=== PATIENT | female | born 1960 | race Caucasian/White ===

== ENCOUNTER 2020-05-19 06:35 | Day surgery (SDC) | payer OTHER ==
[~2020-05-19] VITALS: Ht 160 cm; Wt 80.7 kg
[~2020-05-19 06:35] MED LIST: CLARITIN10 M2 PO; IBUPROFEN200 M1 PO; METOPROLOL SUCC25 MG PO; MULTIVITAMINS1 EAC7 PO; SYNTHROID125 MCG PO
[2020-05-19] MEDS ORDERED: HYDROCODON-ACE1 EA11 PO (08:27)
[2020-05-19] MEDS ORDERED: CELECOXIB200 MG PO (08:27)
--- NOTE | 2020-05-19 08:28 | NUR ---
05/19/20 0828 Lindsey Voss 2526 PT ARRIVED TO PACU WITH ORAL AIRWAY IN PLACE AND PT NONAROUSABLE. VSS ON 6L VIA MASK. RESP EVEN AND UNALABORED.
--- NOTE | 2020-05-19 08:31 | NUR ---
PT ALERT, ORIENTED AND SUPPORTED BY HER ZULAY AT . BOTH ARE PLEASANT, ALL QUESTIONS ASKED ANSWERED. PT REQUESTED PRAYER
--- NOTE | 2020-05-19 09:10 | NUR ---
PATIENT BACK TO FLOOR FROM RECOVERY, AWAKE ON AND OFF. PATIENT RESTING BACK ICE IN PLACE. DRESSING C/D/I. PATIENT RATES PAIN 8/10 ON PAIN SCALE, STATES" IT FEELS LIKE MY KNEE HAS SPACE IN IT AND IT HURTS". CRACKERS AND WATER PROVIDED FOLLOWED BY ADMINISTRATION OF PAIN MEDICATION PER MAR. AT BEDSIDE. CALLL LIGHT WITHIN REACH.
--- NOTE | 2020-05-19 10:00 | NUR ---
PATIENT RESTING BACK IN BED. RATES PAIN 6/10 ON PAIN SCALE. STATES " FEELS SHARP AND THROBBING". REPOSITIONED BED. WHEN TALKING TO PATIENT FALLS ASLEEP. AT BEDSIDE. VSS.
--- NOTE | 2020-05-19 10:43 | NUR ---
PATIENT UP TO BATHROOM. REPORTS PAIN FEELS BETTER WHEN UP AMBULATING AND GETTING OUT OF BED. DC IV, CATH INTACT. PATIENT NOW GETTING DRESSED. PLAN TO DISCHARGE HOME. VOIDED WELL.
--- NOTE | 2020-05-19 11:29 | NUR ---
PROVIDED PATIENT WITH DC INSTRUCTION, ANSWERED QUESTIONS AND CONCERNS. PATIENT UP AMBULATAING TOLERATING WELL, PAIN REPORTED 4/10 ON PAIN SCALE, MORE TOLERABLE. READ OUT LOUD DR. HAHN DC PACKET FROM OFFICE. PROVIDED WHEELCHAIR RIDE TO FRONT, PATIENT TRANSFERED TO CAR WELL.
--- NOTE | 2020-05-22 11:13 | OR ---
[facility] [address] [facility] [facility] [place], [place] [address] Signed DATE OF OPERATION: 05/19/2020 SURGEON: Mac Siu MD PREOPERATIVE DIAGNOSIS: Left medial meniscus tear. POSTOPERATIVE DIAGNOSIS: Left medial meniscus tear. PROCEDURE PERFORMED: Left knee arthroscopy with partial medial meniscectomy. QUALITY CONTROL SCIENTIST: Renuka ENRIQUE. ANESTHESIA: General. BLOOD LOSS: Minimal. TOURNIQUET TIME: 0. BRIEF HISTORY: Carleen is a 60-year-old female with progressive worsening of pain and locking in her knee. MRI is consistent with a fairly sizable medial meniscus tear. Risks and benefits of surgery were discussed and she elected to proceed. DESCRIPTION OF PROCEDURE: Once the consent was obtained, she was taken to the operating room after adequate anesthesia. She was placed on the operating room table. All downside pressure points were well padded. The right leg was flexed, abducted, and externally rotated on a well-padded leg horowitz. The left was placed in a well-padded leg horowitz with no tourniquet. The leg was then prepped and draped in a standard sterile fashion. We did pre-inject with the portals with 0.25% Marcaine with epinephrine under an alcohol prep. The leg was then prepped and draped in a standard sterile fashion and standard inferior lateral and superolateral portal was made and the scope was introduced in the knee. Electronically Signed By: MAC SIU MD 05/22/20 1113 PATIENT NAME: CARLEEN PHAN OPERATIVE REPORT DATE OF : 62 REPORT #: [id number] PHYSICIAN: MAC SIU MD PCP: FABRICIO STANFORD MD REPORT IS CONFIDENTIAL AND NOT TO BE RELEASED WITHOUT AUTHORIZATION [address], [place] [address] Signed ARTHROSCOPIC FINDINGS: The patellofemoral articulation was intact. Medial and lateral gutters were intact. ACL and PCL were intact. Lateral compartment showed nice smooth chondral surfaces and no meniscus tear. 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 The meniscus showed a complex degenerative tear from the mid body extending posteriorly to the posterior horn. DESCRIPTION OF PROCEDURE: A standard inferomedial portal was made after localization using a spinal needle. The straight and curved biters were then used to trim the meniscus tear back to a stable rim. This was then smoothed using a shaver and all debris was evacuated. The scope was withdrawn. Portals were closed with 3-0 nylon and the knee was injected with 60 mg Toradol at the end of the case. The wounds were dressed with Adaptic, ABD, and Saravanan wrap. She tolerated the procedure well. All sponge, needle, and instrument counts were correct. Mac Siu MD BA/LEONIDL /[id number] Copies: ~ Electronically Signed By: MAC SIU MD 05/22/20 1113 PATIENT NAME: CARLEEN PHAN OPERATIVE REPORT DATE OF : 62 REPORT #: [id number] PHYSICIAN: MAC SIU MD PCP: FABRICIO STANFORD MD REPORT IS CONFIDENTIAL AND NOT TO BE RELEASED WITHOUT AUTHORIZATION
== END 2020-05-19 10:45 | disposition home or self-care (01) ==
LOC: DS 06:35
PROVIDERS: Specialist
PROC: 0SBD4ZZ Excision of Left Knee Joint, Percutaneous Endoscopic Approach (ICD-10-PCS; principal; 2020-05-19 08:00)
DX: S83.232A Complex tear of medial meniscus, current injury, left knee, initial encounter (principal); M94.262 Chondromalacia, left knee; Z79.899 Other long term (current) drug therapy; Z87.891 Personal history of nicotine dependence
CPT/HCPCS: 01400; A9270; J0690; J1100; J1885; J2001; J2250; J2405; J2704; J3010; J7121

== ENCOUNTER 2024-06-18 07:45 | Day surgery (SDC) | payer OTHER ==
[2024-06-14 17:14] VITALS: BP 144/88
[~2024-06-18] VITALS: Ht 160 cm; Wt 79.1 kg
[~2024-06-18 07:45] MED LIST changes: +CEFAZOLIN SODIUM 2 GM/20 ML SYR IV SCH; +CELECOXIB200 MG PO; +HEParin SOD (PORCINE) 5,000 UNIT/0.5 ML SYR SUB-Q SCH; +HYDROCODON-ACE1 EA11 PO; +IBLOOD GLUCOSE TEST STRIP 1 EA TEST VI PRN; +LACTATED RINGER'S 1,000 ML IV SCH; +LIDOCAINE HCL 1% 5 ML SDV INJ ONE; +LOSARTAN-HCTZ1 EACH PO; +ZYRTEC10 MG PO
[2024-06-18 07:59] VITALS: BP 146/72
[2024-06-18] MEDS ORDERED: FLONASE ALLERG9.9 ML NAS (08:17)
[2024-06-18] MEDS ORDERED: KETOROLAC TROMETHAMINE 30 MG/ML VIAL ONE ×2 (08:31→12:34)
[2024-06-18] MEDS ORDERED: ROCURONIUM BROMIDE 50 MG/5 ML SYR ONE ×3 (08:31→12:48)
[2024-06-18] MEDS ORDERED: ondansetron HCL 4 MG/2 ML VIAL ONE ×3 (08:31→14:52)
[2024-06-18] MEDS ORDERED: DEXAMETHASONE SOD PHOS 4 MG/ML VIAL ONE ×2 (08:31→12:34)
[2024-06-18] MEDS ORDERED: KETAMINE in NS 50 MG/5 ML SYR ONE ×2 (08:31→12:39)
[2024-06-18] MEDS ORDERED: propofoL 200 MG/20 ML VIAL ONE ×2 (08:31→12:34)
[2024-06-18] MEDS ORDERED: LIDOCAINE HCL 1% 30 ML SDV ONE ×2 (08:31→12:34)
--- NOTE | 2024-06-18 09:35 | NUR ---
0930 CHECKED IN ON PT, PT SLEEPING SOUNDLY IN BED. CALL LIGHT WITHIN REACH.
--- NOTE | 2024-06-18 10:06 | NUR ---
1006 CHECKED ON PT, PT RESTING IN BED. CALL LIGHT WITHIN REACH.
[2024-06-18] MEDS ORDERED: iopamidoL 30 ML VIAL ONE (12:31)
[2024-06-18] MEDS ORDERED: BUPIVACAINE HCL 0.25% 50 ML MDV ONE (12:31)
[2024-06-18] MEDS ORDERED: SODIUM CHLORIDE 0.9% 40 ML IV ONE (12:32)
[2024-06-18 12:40] VITALS: BP 164/104
[2024-06-18] MEDS ORDERED: dexmedeTOMIDine HCl 200 MCG/2 ML VIAL ONE (12:40)
[2024-06-18] MEDS ORDERED: fentaNYL citrate 50 MCG/ML SDV IV PRN (12:45)
[2024-06-18] MEDS ORDERED: ondansetron HCL 4 MG/2 ML VIAL IV PRN (12:45)
[2024-06-18] MEDS ORDERED: IBLOOD GLUCOSE TEST STRIP 1 EA TEST VI PRN (12:45)
[2024-06-18] MEDS ORDERED: NALOXONE HCL 0.4 MG SYR IV PRN ×2 (12:45→14:30)
[2024-06-18] MEDS ORDERED: ACETAMINOPHEN 1,000 MG/100 ML VIAL ONE (13:13)
[2024-06-18] MEDS ORDERED: fentaNYL citrate 100 MCG/2 ML VIAL ONE (13:24)
[2024-06-18] MEDS ORDERED: ESMOLOL HCL 100 MG/10 ML VIAL IV ONE (13:44)
[2024-06-18] MEDS ORDERED: LACTATED RINGER'S 0 ML IV ONE (13:45)
[2024-06-18] MEDS ORDERED: SUGAMMADEX SODIUM 200 MG/2 ML ML ONE (14:04)
[2024-06-18 14:30] VITALS: BP 162/94
[2024-06-18] MEDS ORDERED: IBUPROFEN 600 MG TAB PO PRN (14:30)
[2024-06-18] MEDS ORDERED: OXYCODONE/APAP 7.5/325 TAB PO PRN (14:30)
[2024-06-18] MEDS ORDERED: ACETAMINOPHEN 500 MG TAB PO PRN (14:30)
[2024-06-18] MEDS ORDERED: LACTATED RINGER'S 1,000 ML IV SCH (14:30)
[2024-06-18] MEDS ORDERED: PERCOCET 7.5-31 EACH PO (14:32)
--- NOTE | 2024-06-18 14:32 | NUR ---
06/18/24 1432 Wellington,Kim Mays 1416: PATIENT ARRIVED TO PACU UNRESPONSIVE WITH ORAL AIRWAY IN PLACE. ORAL AIRWAY REMOVED BY HOTEL SERVER. 1418: JAW HOLDING BY RN. 1424: ORAL AIRWAY REPLACED BY HOTEL SERVER.
[2024-06-18] MEDS ORDERED: MOTRIN IB200 MG PO (14:33)
[2024-06-18] MEDS ORDERED: TYLENOL EXTRA500 MG PO (14:33)
[2024-06-18] MEDS ORDERED: LACTATED RINGER'S 1,000 ML IV ONE (15:07)
[2024-06-18] MEDS ORDERED: droPERidol 5 MG/2 ML VIAL IV PRN (15:30)
[2024-06-18 15:40] VITALS: BP 187/93
--- NOTE | 2024-06-18 15:40 | NUR ---
PT ARRIVED BACK TO FROM PACU AT APPROX 1540. PT IS AAOX3 AND ABLE TO MAKE HER NEEDS KNOWN. PT ON RA AND SIPPING ICE WATER. PT DENIES NAUSEA WHEN ASKED. PT RATES PAIN IN ABD AT 3/10. REPORT RECEIVED FROM WAITER/WAITRESS. VISUALIZED LAP SITES X4 WITH WAITER/WAITRESS. STERI STRIPS IN PLACE WITH SMALL AMT OF SS DRAINAGE NOTED. PTS MOTHER IN ROOM AT BEDSIDE UPON PTS RETURN. IV SITE ASSESSED, PATENT, LR INFUSING. VS TAKEN. BP ELEVATED. ANESTHESIA AWARE. NO NEW ORDERS RECEIVED. PT PROVIDED WITH CRACKERS AND JELLO. PT UTILIZING A PILLOW TO STABILIZE ABD INCISIONS WITH MOVEMENT AND MINIMIZE DISCOMFORT. CALL LIGHT WITHIN PT REACH. BED IN LOW POSITION WITH WHEELS LOCKED. BILAT SIDE RAILS UP IN PLACE. ALL QUESTIONS ANSWERED. PERSONAL BELONGINGS WITHIN REACH. PT DENIES ANY FURTHER NEEDS AT THIS TIME.
--- NOTE | 2024-06-18 16:05 | NUR ---
INTO PTS ROOM TO ANSWER CALL LIGHT. PT REQUESTING TO USE RESTROOM. PT ASSISTED UP TO EOB. PT THEN AMBULATED TO RESTROOM WITH RN SBA FOR SAFETY. PT ABLE TO VOID 350 ML OF CLR, YELLOW URINE. PT AMBULATED BACK TO BED WITH RN SBA. PTS ARRIVED AND REQUESTING TO SPEAK WITH DR. ARCE. PROVIDER MET WITH PT AND HER TO GO OVER CASE. GIVEN RX TO TAKE TO PHARMACY. PT HAS CALL LIGHT WITHIN REACH. BED IN LOW POSITION WITH WHEELS LOCKED. PTS MOTHER AT BEDSIDE. SURGICAL INCISIONS VISUALIZED POST-AMBULATION. NO ACUTE CHANGES NOTED FROM PREVIOUS ASSESSMENT. PT DENIES ANY INCREASE IN PAIN POST-AMBULATION.
[2024-06-18 16:40] VITALS: BP 169/84
--- NOTE | 2024-06-18 17:00 | NUR ---
1640-INTO PTS ROOM FOR ROUTINE REASSESSMENT. VS TAKEN. BP HAS IMPROVED SOME. IV SITE ASSESSED. NO ACUTE CHANGES NOTED IN SURGICAL SITES FROM PREVIOUS ASSESSMENT. PT REPORTS NO CHANGE IN PAIN AND CONT TO RATE PAIN AT 3/10. PT DENIES NAUSEA WHEN ASKED. PT HAS BEEN ABLE TO TOLERATE PO FOOD AND FLUIDS WITHOUT ISSUES. PTS MOTHER REMAINS IN ROOM AT PTS BEDSIDE. DISCHARGE INSTRUCTIONS GONE OVER WITH PT. EMPHASIS PLACED ON WEIGHT LIGTING RESTICTIONS X2 WEEKS OF NO GREATER THAN 20 POUNDS. PT VERBALIZED UNDERSTANDING OF THIS. PT REMINDED TO USE PILLOW FOR BRACING ABD WITH MOVEMENTS TO HELP MINIMIZE STRAINING AND PAIN. PT ALSO REMINDED TO CALL DR. ARCE OFFICE ON FRIDAY MORNING TO SCHEDULE HER 4 WEEK +/- F/U APPT. ALL QUESTIONS ANSWERED. PT PROVIDED WITH CLOTHING AND CALL LIGHT WITHIN REACH. PT DRESSING FOR DISCHARGE. 1650-PT FINISHED DRESSING. HAS RETURNED FROM TAKING RX TO PHARMACY TO BE FILLED. DISCHARGE INSTRUCTIONS REVIEWED WITH PTS ALSO. 1655-IV REMOVED FROM PTS R HAND. TIP OBSERVED TO BE INTACT. PRESSURE DRSG APPLIED WITH GAUZE AND COBAN. 1700-PT DISCHARGED HOME FROM VIA WC TO PASSENGER SIDE OF HUSBANDS VEHICLE. ALL PERSONAL BELONGINGS TAKEN WITH PT. ALL QUESTIONS ANSWERED. PT DENIES ANY FUTHER NEEDS.
--- NOTE | 2024-06-20 13:47 | OR ---
[facility] [address] [place], [place] [address] Signed DATE OF OPERATION: 06/18/2024 SURGEON: James Arce MD PREOPERATIVE DIAGNOSIS: Chronic calculous cholecystitis. POSTOPERATIVE DIAGNOSIS: Chronic calculous cholecystitis. PROCEDURE: Laparoscopic cholecystectomy with intraoperative cholangiogram. ANESTHESIA: General endotracheal; Aleah Mejia CRNA and local 10 mL of 0.25% Marcaine with epinephrine. INDICATION: This 64-year-old woman is a patient of MIKE Walters. She has been evaluated for abdominal symptoms of bloating, though she does not have typical biliary colic type symptoms. She has noted in the past extremely dark aleah colored urine reverting to a normal thin yellow color and was concerned regarding all of this. She underwent a gallbladder ultrasound on April 08, 2024 confirming fatty liver as well as gallstones. The gallbladder itself showed no sign of thickening or pericholecystic fluid. She does seem to have symptoms of bloating following food, worse with fatty food indeed. She is admitted at this time to undergo cholecystectomy for probable calculous cholecystitis (chronic). She understands the risk of bleeding, infection, bile duct injury, need for open procedure and need for other indicated procedures and wished to proceed. FINDINGS: The gallbladder was chronically inflamed and dull in color. There were omental adhesions to its undersurface. The gallbladder was excised without problem. Cholangiogram showed no sign of filling defect or biliary anomaly. The gallbladder once opened showed chronic inflammatory change of the mucosa and two 2 cm sharp tooth shaped gallstones. She tolerated the procedure well. DESCRIPTION OF PROCEDURE: The patient was brought to the operating room, given a general endotracheal anesthetic. Preoperative antibiotic Ancef was given. Sequential compression device stockings used and heparin subcutaneously administered. The abdomen was prepared with a chlorhexidine Electronically Signed By: JAMES ARCE MD 06/20/24 1347 PATIENT NAME: CARLEEN PHAN OPERATIVE REPORT DATE OF : 62 REPORT #: [id number] PHYSICIAN: JAMES ARCE MD PCP: ISABEL TIDWELL PAC REPORT IS CONFIDENTIAL AND NOT TO BE RELEASED WITHOUT AUTHORIZATION [facility] [address] [place], [place] [address] Signed solution and draped sterilely. The infraumbilical incision was made and using an open Hernán cannula technique pneumoperitoneum was achieved to a level of 14 mmHg of carbon dioxide gas. Intra-abdominal inspection showed no sign of ascites or carcinomatosis. The gallbladder was dull in appearance. The liver edge was blunted, though not excessively fatty infiltrated. Three additional trocars were placed in their usual configuration in the subxiphoid, right midclavicular, and right anterior axillary line. The gallbladder was elevated cephalad and retracted laterally and omental adhesions to the undersurface of the gallbladder were taken down with blunt electrocautery dissection. The triangle of Calot was dissected free ultimately attaining the critical view of safety. Cystic arterial branch which was dominant, was doubly clipped and a clip was applied across the gallbladder cystic duct junction. A transverse choledochotomy in the cystic duct allowing for intraoperative cholangiography with an Grey type cholangiocatheter showing free flow of contrast in the biliary tree with prompt emptying into the duodenum. There was no sign of filling defect, biliary anomalies or other problem. The catheter was removed and the cystic duct was triply clipped and the gallbladder was then dissected free in a retrograde fashion using electrocautery. Gallbladder was placed in an endobag and extracted through the infraumbilical port site as there was a very small bile leak near at the conclusion of dissection from the liver. The gallbladder was opened on the back table and found to have two 2 cm gallstones, sharp tooth in appearance. The mucosa was chronically inflamed. There was no sign of neoplasm. Irrigation was undertaken in the subhepatic space. There was no sign of bile leak, bleeding or other problems. Excess irrigation fluid was suctioned free and the trocars were removed under direct visualization. Small amount of cautery was required in the epigastric port site but good hemostasis was noted by conclusion. 10 mL of 0.25% Marcaine with epinephrine was injected locally in the trocar sites. Fascial closure at the umbilicus with 0 Vicryl was secured. The skin was then closed with interrupted 3-0 Vicryl. Steri-Strips were applied and the patient was ultimately extubated and transferred to the recovery room in good condition. Sponge, needle, and instrument counts were reported correct x3. Blood loss was about 20 mL in aggregate. MD BOSTON Crandall/LEONIDL /[id number] Electronically Signed By: JAMES ARCE MD 06/20/24 1347 PATIENT NAME: CARLEEN PHAN OPERATIVE REPORT DATE OF : 62 REPORT #: [id number] PHYSICIAN: JAMES ARCE MD PCP: ISABEL TIDWELL REPORT IS CONFIDENTIAL AND NOT TO BE RELEASED WITHOUT AUTHORIZATION [facility] [address] [place], [place] [address] Signed cc: Isabel Tidwell PA-C Copies: ISABEL TIDWELL ~ Electronically Signed By: JAMES ARCE MD 06/20/24 1347 PATIENT NAME: CARLEEN PHAN GLADYS OPERATIVE REPORT DATE OF : 62 REPORT #: [id number] PHYSICIAN: JAMES ARCE MD PCP: ISABEL TIDWELL REPORT IS CONFIDENTIAL AND NOT TO BE RELEASED WITHOUT AUTHORIZATION
--- NOTE | 2024-06-24 16:03 | PATH ---
[facility] [address] [facility] [place] [address] Signed SPECIMEN(S): A GALLBLADDER SPECIMEN SOURCE: A. GALLBLADDER CLINICAL HISTORY: Chronic cholecystitis with calculus FINAL PATHOLOGIC DIAGNOSIS: Gallbladder, cholecystectomy: - Chronic calculous cholecystitis. - Mucosal cholesterolosis. JVR:llc MICROSCOPIC EXAMINATION: Histologic sections of all submitted blocks are examined by light microscopy. These findings, together with the gross examination, support the pathologic diagnosis. GROSS DESCRIPTION: The specimen, labeled and designated "Akua Donaldson " and designated on the requisition "gallbladder," is received in formalin and consists of Specimen: Previously opened gallbladder. Dimensions: 8.1 x 5.3 x 0.9 cm. Serosa: Pale pink and smooth. Cystic Duct: Inked, unobstructed. Calculi: To orange-brown smooth, angular calculi, 2.1 and 2.3 cm in greatest dimension. Mucosa: Green and velvety with yellow flecking. Wall thickness: 0.3 cm. Lymph node: No pericystic lymph nodes are grossly identified. Additional: None. Quality Improvement Analyst sections are submitted in (A1). FB (under the direct supervision of a pathologist) The Gross Description was prepared using a voice recognition system. The report was reviewed for accuracy; however, sound-alike word errors, addition and/or deletions may occur. If there is any question about this report, please contact Client Services. PERFORMING LABORATORY: Technical component was performed by [employer], Jonah Reilly, PATIENT NAME: CARLEEN DONALDSON PATHOLOGY DATE OF : 62 REPORT #: [id number] PHYSICIAN: ALDO CRAIN PCP: THANIA SANFORD PAC REPORT IS CONFIDENTIAL AND NOT TO BE RELEASED WITHOUT AUTHORIZATION [place] [id number] [place], [place] [address] [place] [address] (CLIA# [id number]). [facility] [address] [address] (CLIA#: [id number]). Diagnostician: Andrea Genao MD Pathologist Electronically Signed 06/24/2024 Copies: ~ PATIENT NAME: CARLEEN DONALDSON PATHOLOGY DATE OF : 62 REPORT #: [id number] PHYSICIAN: ALDO CRAIN PCP: THANIA SANFORD PAC REPORT IS CONFIDENTIAL AND NOT TO BE RELEASED WITHOUT AUTHORIZATION
== END 2024-06-18 17:00 | disposition home or self-care (01) ==
LOC: DS 07:45
PROVIDERS: ATTEND Surgery
PROC: BF03YZZ Plain Radiography of Gallbladder and Bile Ducts using Other Contrast (ICD-10-PCS; 2024-06-18)
PROC: 0FT44ZZ Resection of Gallbladder, Percutaneous Endoscopic Approach (ICD-10-PCS; principal; 2024-06-18 11:10)
DX: K80.10 Calculus of gallbladder with chronic cholecystitis without obstruction (principal); K21.00 Gastro-esophageal reflux disease with esophagitis, without bleeding; E03.9 Hypothyroidism, unspecified; I10 Essential (primary) hypertension; Z88.8 Allergy status to other drugs, medicaments and biological substances; Z79.890 Hormone replacement therapy; Z79.899 Other long term (current) drug therapy
CPT/HCPCS: 00790; 74300; J0131; J0690; J1100; J1644; J1885; J2405; J2704; J3010; J3490; J7121; Q9967